=== PATIENT | female | born 1960 | race Caucasian/White ===

== ENCOUNTER 2018-09-29 12:28 | Day surgery (SDC) | payer BC ==
[2018-09-27 09:07] VITALS: BMI 28.3
--- NOTE | 2018-09-29 12:22 | P.GSHP ---
History of Present Illness H&P Date: 09/29/18 CHIEF COMPLAINT: Colon screen HISTORY OF PRESENT ILLNESS: The patient is a 58-year-old female who presents for colon screen. Lower endoscopy was offered for further evaluation and management. PAST MEDICAL HISTORY: Please see list. PAST SURGICAL HISTORY: Please see list. MEDICATIONS: Please see list. ALLERGIES: Please see list. SOCIAL HISTORY: No illicit drug use FAMILY HISTORY: No reports of Crohn disease or ulcerative colitis. REVIEW OF ORGAN SYSTEMS: CONSTITUTIONAL: No reports of fevers or chills. PHYSICAL EXAM: VITAL SIGNS: Stable GENERAL: Well-developed pleasant in no acute distress. HEENT: No scleral icterus. Extraocular movements grossly intact. Moist buccal mucosa. NECK: Supple without lymphadenopathy. CHEST: Unlabored respirations. Equal bilateral excursions. CARDIOVASCULAR: Regular rate and rhythm. Distal 2+ pulses. ABDOMEN: Soft, nontender, nondistended. MUSCULOSKELETAL: No clubbing, cyanosis, or edema. ASSESSMENT: 1. Colon screen. PLAN: 1. Recommend proceeding with a lower endoscopy Past Medical History Past Medical History: Atrial Fibrillation Additional Past Medical History / Comment(s): currentl tx with antibiotic for cold symptoms for few weeks,hx bleeding ulcer History of Any Multi-Drug Resistant Organisms: None Reported Past Surgical History: Section, Joint Replacement, Orthopedic Surgery, Uterine Ablation Additional Past Surgical History / Comment(s): rt knee arthroscopy x2,rt knee partial knee,rt total knee replacement Past Anesthesia/Blood Transfusion Reactions: No Reported Reaction Smoking Status: Never smoker - Past Family History Mother Family Medical History: No Reported History Medications and Allergies Home Medications Medication Instructions Recorded Confirmed Type Amoxicillin 875 mg PO Q12HR 09/27/18 09/27/18 History Aspirin 81 mg PO DAILY 09/27/18 09/27/18 History Benzonatate [Tessalon Perles] 200 mg PO TID PRN 09/27/18 09/27/18 History Metoprolol Tartrate [Lopressor] 25 mg PO BID 09/27/18 09/27/18 History Multivitamins, Thera [Multivitamin 1 tab PO DAILY 09/27/18 09/27/18 History (formulary)] Propafenone HCl [Propafenone HCl 225 mg PO BID PRN 09/27/18 09/27/18 History ER] Allergies Allergy/AdvReac Type Severity Reaction Status Date / Time cephalexin [From Keflex] Allergy Swelling Verified 09/27/18 08:55 Tetracyclines Allergy Unknown Verified 09/27/18 08:55
[2018-09-29] MEDS ORDERED: LIDOCAINE 1% 20 ML VIAL (10MG/ML) FOR IV START INTRADERMA ONE (13:05)
[2018-09-29] MEDS: LACTATED RINGERS 1,000 ML IV SCH ×2 (13:05→23:50)
[2018-09-29] MEDS ORDERED: LABETALOL 5 MG/ML VIAL MDV ONE (13:53)
[2018-09-29] MEDS ORDERED: PROPOFOL 10 MG/ML 20 ML VIAL IV ONE (13:53)
--- NOTE | 2018-09-29 14:11 | P.PCN ---
Date of Procedure: 09/29/18 Description of Procedure: PREOPERATIVE DIAGNOSIS: Colonoscopy screening. POSTOPERATIVE DIAGNOSIS: Colonoscopy screening. Diverticulosis, scattered. OPERATION: Colonoscopy to the ileocecal valve and appendiceal orifice. SURGEON: Suzanne Bruce MD. ANESTHESIA: MAC. INDICATIONS: The patient is a 58-year-old female who presents for colonoscopy screening. Last colonoscopy was 10 years ago. Benefits and risks were described and informed consent was obtained. DESCRIPTION OF PROCEDURE: The patient had undergone Gatorade, MiraLAX and Dulcolax prep. She had been brought into the operating room and laid in the left lateral decubitus position. After adequate intravenous sedation, the rectum was examined with 2% lidocaine jelly. No external hemorrhoids were encountered. The rectal tone was within normal limits. No lesions were palpated in the rectal vault. An Olympus colonoscope was advanced until the ileocecal valve and appendiceal orifice were clearly viewed. The prep was excellent with clear visualization of the mucosal folds. The scope was removed with visualization of each mucosal fold. Scattered diverticulosis was encountered. Mild stricture curvature along the sigmoid colon was encountered upon advancement of scope. No colonic polyps were found. No evidence of focal colitis was found. Retroflexion of the scope demonstrated no internal hemorrhoids. The colon was desufflated. The patient had tolerated the procedure well. Withdrawal time was over 6 minutes. FINDINGS: Sigmoid diverticulosis which stricture between 10-20 cm from the anal verge No internal hemorrhoids No external prolapsed hemorrhoids. No arteriovenous malformations. No adenomatous polyps. No focal colitis. RECOMMENDATIONS: Lower endoscopy in 10 years, 2027 Plan - Discharge Summary New Discharge Prescriptions: No Action Multivitamins, Thera [Multivitamin (formulary)] 1 tab PO DAILY Aspirin 81 mg PO DAILY Propafenone HCl [Propafenone HCl ER] 225 mg PO BID PRN PRN Reason: afib Metoprolol Tartrate [Lopressor] 25 mg PO BID Amoxicillin 875 mg PO Q12HR Benzonatate [Tessalon Perles] 200 mg PO TID PRN PRN Reason: Cough Discharge Medication List Amoxicillin 875 mg PO Q12HR 09/27/18 [History] Aspirin 81 mg PO DAILY 09/27/18 [History] Benzonatate [Tessalon Perles] 200 mg PO TID PRN 09/27/18 [History] Metoprolol Tartrate [Lopressor] 25 mg PO BID 09/27/18 [History] Multivitamins, Thera [Multivitamin (formulary)] 1 tab PO DAILY 09/27/18 [History ] Propafenone HCl [Propafenone HCl ER] 225 mg PO BID PRN 09/27/18 [History] Follow up Appointment(s)/Referral(s): Suzanne Bruce MD [STAFF PHYSICIAN] - As Needed Patient Instructions/Handouts: A-fib (Atrial Fibrillation) (DC), Diverticulosis (ED), Diverticulosis Diet (GEN) Activity/Diet/Wound Care/Special Instructions: Repeat colonoscopy 10 years, 2027. PLEASE SEE YOUR DOCTOR FOR YOUR ATRIAL FIBRILLATION Discharge Disposition: HOME SELF-CARE
[2018-09-29] MEDS ORDERED: PROPAFENONE 225 MG TAB PO STA (15:51)
[2018-09-29] MEDS ORDERED: SODIUM CHLORIDE 0.9% 1,000 ML IV ONE (17:04)
[2018-09-29] MEDS ORDERED: DILTIAZEM DRIP BOLUS FROM BAG 1 MG SOLN IV ONE (17:27)
--- NOTE | 2018-09-29 17:36 | P.CRDCN ---
History of Present Illness Consult date: 09/29/18 History of present illness: This is a 58-year-old female with history of paroxysmal atrial fibrillation, had a screening colonoscopy today. In the recovery room patient was found to be in atrial fibrillation with a rapid ventricular response. Cardiology consult initiated for further evaluation. Patient was being treated with metoprolol and Rythmol on when necessary basis. She takes Rythmol, only when she feels her heart is rapid. She was not considered for anticoagulation therapy because of her low risk profile. Patient doesn't have any hypertension , diabetes, CHF, coronary artery disease or previous stroke. At the time of my examination patient is comfortable and doesn't appear to be in acute distress. Heart rate is in the 120 to 130 range. We'll may give her Rythmol by mouth to see if we can converted to sinus rhythm. No anticoagulation therapy at this time. Patient had colonoscopy today Past Medical History Past Medical History: Atrial Fibrillation Additional Past Medical History / Comment(s): currentl tx with antibiotic for cold symptoms for few weeks,hx bleeding ulcer History of Any Multi-Drug Resistant Organisms: None Reported Past Surgical History: Section, Joint Replacement, Orthopedic Surgery, Uterine Ablation Additional Past Surgical History / Comment(s): rt knee arthroscopy x2,rt knee partial knee,rt total knee replacement Past Anesthesia/Blood Transfusion Reactions: No Reported Reaction Smoking Status: Never smoker - Past Family History Mother Family Medical History: No Reported History Medications and Allergies Home Medications Medication Instructions Recorded Confirmed Type Amoxicillin 875 mg PO Q12HR 09/27/18 09/29/18 History Aspirin 81 mg PO DAILY 09/27/18 09/29/18 History Benzonatate [Tessalon Perles] 200 mg PO TID PRN 09/27/18 09/29/18 History Metoprolol Tartrate [Lopressor] 25 mg PO BID 09/27/18 09/29/18 History Multivitamins, Thera [Multivitamin 1 tab PO DAILY 09/27/18 09/29/18 History (formulary)] Propafenone HCl [Propafenone HCl 225 mg PO BID PRN 09/27/18 09/29/18 History ER] Allergies Allergy/AdvReac Type Severity Reaction Status Date / Time cephalexin [From Keflex] Allergy Swelling Verified 09/27/18 08:55 Tetracyclines Allergy Unknown Verified 09/27/18 08:55 Physical Exam Vitals: Vital Signs Temp Pulse Pulse Pulse Resp BP BP 09/29/18 17:13 124 H 16 121/58 09/29/18 16:44 132 H 16 106/80 09/29/18 16:34 165 H 18 102/67 09/29/18 16:12 128 H 18 85/61 09/29/18 15:53 131 H 18 124/85 09/29/18 15:40 148 H 18 123/80 09/29/18 15:30 117 H 18 117/83 09/29/18 15:20 115 H 18 82/59 09/29/18 15:08 78 18 117/68 09/29/18 14:50 142 H 18 90/68 09/29/18 14:30 120 H 18 09/29/18 14:16 99 16 09/29/18 12:57 97.9 F 54 L 16 165/75 BP Pulse Ox 09/29/18 17:13 98 09/29/18 16:44 98 09/29/18 16:34 99 09/29/18 16:12 99 09/29/18 15:53 100 09/29/18 15:40 100 09/29/18 15:30 100 09/29/18 15:20 100 09/29/18 15:08 100 09/29/18 14:50 09/29/18 14:30 89/67 97 09/29/18 14:16 132/89 96 09/29/18 12:57 97 Intake and Output 09/29/18 09/29/18 09/29/18 06:59 14:59 22:59 Intake Total 500 50 Balance 500 50 Intake: IV 500 50 GENERAL EXAM: Patient is alert and oriented and doesn't appear to be in any acute distress HEENT: Normocephalic. Normal reaction of pupils, equal size, normal range of extraocular motion. No erythema or exudates in the throat. NECK: No masses, no nuchal rigidity. CHEST: No chest wall deformity. LUNGS: Equal air entry with no crackles or wheeze. HEART: S1 and S2 normal, tachycardic ABDOMEN: No hepatosplenomegaly, normal bowel sounds, no guarding or rigidity. SKIN: No rashes CENTRAL NERVOUS SYSTEM: No focal deficits. EXTREMITIES: No cyanosis, clubbing or edema. Results Current Medications Generic Name Dose Route Start Last Admin Trade Name Freq PRN Reason Stop Dose Admin Lactated Ringer's 1,000 mls @ 20 mls/hr 09/28/18 18:45 09/29/18 13:05 Lactated Ringers IV 900 mls .Q24H ALISON Administration Sodium Chloride 1,000 mls @ 999 mls/hr 09/29/18 17:04 09/29/18 17:12 Saline 0.9% IV 09/29/18 18:04 0 mls .Q1H1M ONE Administration Diltiazem HCl 50 mg/ Sodium 50 mls @ 10 mls/hr 09/29/18 17:30 Chloride IV .Q5H ALISON 10 MG/HR Intake and Output 09/29/18 09/29/18 09/29/18 06:59 14:59 22:59 Intake Total 500 50 Balance 500 50 Intake: IV 500 50 EKG Interpretations (text) Atrial fibrillation with a rapid ventricular response Assessment and Plan (1) Paroxysmal atrial fibrillation Current Visit: Yes Status: Acute Code(s): I48.0 - PAROXYSMAL ATRIAL FIBRILLATION SNOMED Code(s): 021674817 Plan: I will initiate on Cardizem IV drip. We'll resume beta blockers and Rythmol. Hold off on anticoagulations until tomorrow.
[2018-09-29] MEDS: DILTIAZEM 50 MG in SODIUM CHLORIDE 0.9% 40 ML IV SCH ×2 (17:46→21:16)
[2018-09-29] MEDS ORDERED: ALPRAZolam 0.25 MG TAB PO PRN (18:59)
[2018-09-29] MEDS ORDERED: TEMAZEPAM 15 MG CAP PO PRN (18:59)
[2018-09-29] MEDS ORDERED: ACETAMINOPHEN TAB 500 MG TAB PO PRN (18:59)
[2018-09-29] MEDS ORDERED: HYDROcodone/APAP 5-325MG 1 EACH TAB PO PRN (18:59)
--- NOTE | 2018-09-29 19:39 | P.PN ---
Progress Note - Text Progress Note Date: 09/29/18 She reports feeling well after developing afib with RVR in the PACU following her uneventful colonoscopy. No polyps or biopsies performed. Findings of diverticulosis confirmed. "I do no feel my afib!" She has been seen by cardiology. Discharge pending cardiology recommendations. Follow-up with primary care doctor and line builder as outpatient.
[2018-09-29] MEDS: AMOXICILLIN 875 MG TAB PO SCH (20:49)
[2018-09-29] MEDS: METOPROLOL TARTRATE 25 MG TAB PO SCH (20:49)
[2018-09-29 21:05] LABS: Albumin 3.5 g/dL (3.5-5.0); Calcium 8.9 mg/dL (8.4-10.2); Potassium 4.6 mmol/L (3.5-5.1); Total Bilirubin 0.5 mg/dL (0.2-1.3); Total Protein 6.3 g/dL (6.3-8.2)
[2018-09-29] MEDS: PROPAFENONE 150 MG TAB PO SCH (21:15)
[2018-09-29 21:22] LABS: Basophils % (A) 1 %; Eosinophils # (A) 0.3 k/uL (0-0.7); Eosinophils % (A) 4 %; HCT 43.8 % (34.0-46.0); HGB 13.8 gm/dL (11.4-16.0); Lymphocytes # (A) 2.1 k/uL (1.0-4.8); Lymphocytes % (A) 31 %; MCH 28.8 pg (25.0-35.0); MCHC 31.6 g/dL (31.0-37.0); MCV 91.2 fL (80.0-100.0); Mean Platelet Volume 7.5; Monocytes # (A) 0.5 k/uL (0-1.0); Monocytes % (A) 7 %; Neutrophils # (A) 3.7 k/uL (1.3-7.7); Neutrophils % (A) 54 %; Platelet Count 256 k/uL (150-450); RBC 4.81 m/uL (3.80-5.40); RDW 13.6 % (11.5-15.5); WBC 6.8 k/uL (3.8-10.6)
--- NOTE | 2018-09-29 21:59 | HP ---
HISTORY AND PHYSICAL CHIEF COMPLAINT: Atrial fibrillation. HISTORY OF PRESENT ILLNESS: This 58-year-old woman with a past medical history of DJD, history of paroxysmal atrial fibrillation, being followed by Dr. Field in the outpatient setting, has had a colonoscopy today by Dr. Bruce for colonoscopy screening. The colonoscopy did not show any acute abnormality, but in Recovery the patient had atrial fibrillation with fast ventricular rate and some minimal hypotension. The heart rate was up to 170. Blood pressure was in the high 80s. The patient received a bolus of 1 L fluid and the patient was transferred to telemetry and is being closely monitored. Cardiology has also seen the patient. She has been started on Cardizem drip. There is no history of any fever, rigor or chills. No history of headache, loss of consciousness, seizures. No chest pain, palpitation. PAST MEDICAL HISTORY: 1. Paroxysmal atrial fibrillation. 2. DJD. 3. History of . MEDICATIONS: Medications prior to admission include: 1. Propranolol 225 mg p.o. b.i.d. p.r.n. 2. Multivitamins 1 p.o. daily. 3. Tessalon Perles 200 mg t.i.d. p.r.n. 4. Aspirin 81 mg daily. 5. Amoxicillin 875 mg p.o. b.i.d. 6. Lopressor 25 mg b.i.d. ALLERGIES: KEFLEX and TETRACYCLINE. FAMILY HISTORY: No history of heart disease or strokes in family. SOCIAL HISTORY: No history of smoking. No history of alcohol intake. REVIEW OF SYSTEMS: ENT: No diminished hearing. No diminished vision. CARDIOVASCULAR SYSTEM: As mentioned earlier. RESPIRATORY SYSTEM: As mentioned earlier. GI: No nausea, vomiting. : No dysuria or retention. NERVOUS SYSTEM: No numbness, weakness. ALLERGY/IMMUNOLOGY: No asthma, hayfever. MUSCULOSKELETAL: As mentioned earlier. HEMATOLOGY/ONCOLOGY: No history of anemia. ENDOCRINE: No history of diabetes, hypothyroidism. CONSTITUTIONAL: As mentioned earlier. DERMATOLOGY: Negative. RHEUMATOLOGY: Negative. PSYCHIATRY: As mentioned earlier. PHYSICAL EXAMINATION: Patient alert and oriented x3. Pulse is 84, irregular. Blood pressure 110/75, respirations 16, temperature 97.9, pulse ox 99% on room air. HEENT: Conjunctivae normal. Oral mucosa moist. NECK: No jugular venous distention. No carotid bruit. No lymph node enlargement. CARDIOVASCULAR SYSTEM: S1, S2 irregular. S4 present. No S3. RESPIRATORY SYSTEM: Breath sounds diminished at the bases. No rhonchi. No crackles. ABDOMEN: Soft, non-tender. No mass palpable. LEGS: No edema. No swelling. NERVOUS SYSTEM: Higher functions as mentioned earlier. Moves all 4 limbs. No focal motor or sensory deficit. LYMPHATICS: No lymph node palpable in neck, axillae or groin. SKIN: No ulcer, rash, bleeding. LABS: Not available currently. ASSESSMENT: 1. Atrial fibrillation with a fast ventricular rate. 2. History of paroxysmal atrial fibrillation. 3. Status post colonoscopy. 4. History of bleeding ulcer. 5. History of degenerative joint disease. RECOMMENDATIONS AND DISCUSSION: In this 58-year-old woman who presented with atrial ablation, at this time I recommend to continue the Cardizem, resume the home medications. Recommend a cardiology consultation. Symptomatic treatment. The patient is followed by a food expeditor in [facility] with Jesus Cardenas, according to her. Further recommendations to follow. Prognosis guarded. Discussed with the patient, who understands and agrees. A copy of this dictation is being forwarded to Dr. Field, who is the primary physician. MMODL / IJN: [id number] /
[2018-09-29] MEDS ORDERED: BENZONATATE 100 MG CAP PO PRN (22:00)
[2018-09-30 02:02] LABS: Appearance,Urine Clear (Clear); Bacteria,Urine Rare /hpf; Bilirubin,Urine Negative (Negative); Blood,Urine Negative (Negative); Color,Urine Yellow; Glucose,Urine (UA) Negative (Negative); Ketones,Urine Negative (Negative); Leukocyte Esterase,Urine Moderate (Negative); Nitrite,Urine Negative (Negative); Protein,Urine Negative (Negative); RBC,Urine <1 /hpf (0-5); Specific Gravity,Urine 1.013 (1.001-1.035); Squamous Epithelial Cell,Urine 1 /hpf (0-4); Urobilinogen,Urine <2.0 mg/dL (<2.0); WBC,Urine 4 /hpf (0-5)
[2018-09-30] MEDS: DILTIAZEM 50 MG in SODIUM CHLORIDE 0.9% 40 ML IV SCH (05:42)
[2018-09-30] MEDS ORDERED: PANTOPRAZOLE 40 MG TABLET PO SCH (07:30)
[2018-09-30 08:10] LABS: Basophils % (A) 0 %; Eosinophils # (A) 0.3 k/uL (0-0.7); Eosinophils % (A) 5 %; HCT 40.7 % (34.0-46.0); HGB 13.1 gm/dL (11.4-16.0); Lymphocytes % (A) 30 %; MCH 29.2 pg (25.0-35.0); MCHC 32.2 g/dL (31.0-37.0); MCV 90.8 fL (80.0-100.0); Mean Platelet Volume 7.7; Monocytes # (A) 0.4 k/uL (0-1.0); Monocytes % (A) 6 %; Neutrophils # (A) 3.7 k/uL (1.3-7.7); Neutrophils % (A) 56 %; Platelet Count 213 k/uL (150-450); RBC 4.49 m/uL (3.80-5.40); RDW 13.5 % (11.5-15.5); WBC 6.6 k/uL (3.8-10.6)
[2018-09-30 08:32] VITALS: RESP 18; TEMP 98.1
[2018-09-30 08:32] LABS: Anion Gap 8 mmol/L; Blood Urea Nitrogen 16 mg/dL (7-17); Calcium 8.7 mg/dL (8.4-10.2); Carbon Dioxide 23 mmol/L (22-30); Chloride 109 mmol/L (98-107); Glucose 90 mg/dL (74-99); Potassium 4.4 mmol/L (3.5-5.1); Sodium 140 mmol/L (137-145)
[2018-09-30] MEDS: METOPROLOL TARTRATE 25 MG TAB PO SCH (08:32)
[2018-09-30] MEDS: PROPAFENONE 150 MG TAB PO SCH (08:33)
[2018-09-30] MEDS: AMOXICILLIN 875 MG TAB PO SCH (08:33)
--- NOTE | 2018-09-30 08:37 | P.PN ---
Subjective Progress Note Date: 09/30/18 Principal diagnosis: A. fib Patient doing well today. Denies pain. She apparently is scheduled for an echo this morning. She has not seen cardiology she states. Objective - Vital Signs Vital signs: Vital Signs Temp 98.1 F 09/30/18 08:26 Pulse 87 09/30/18 08:26 Resp 18 09/30/18 08:26 BP 111/89 09/30/18 08:26 Pulse Ox 98 09/30/18 08:26 Intake & Output 09/29/18 09/30/18 09/30/18 18:59 06:59 18:59 Intake Total 900 50 Output Total 600 Balance 900 -550 Intake: IV 900 Intake, IV Titration 50 Amount Diltiazem 50 mg In Sodium 50 Chloride 0.9% 40 ml @ 10 MG/HR 10 mls/hr IV .Q5H ALISON Rx#:[id number] Output: Urine 600 Other: Voiding Method Toilet # Voids 4 - Exam Abdomen: Soft, nontender, nondistended - Labs CBC & Chem 7: 09/30/18 07:24 09/30/18 07:24 Labs: Abnormal Lab Results - Last 24 Hours (Table) 09/29/18 09/30/18 09/30/18 Range/Units 20:24 01:23 07:24 Chloride 109 H 109 H (98-107) mmol/L Glucose 113 H (74-99) mg/dL Ur Leukocyte Esterase Moderate H (Negative) Urine Bacteria Rare H (None) /hpf Assessment and Plan Plan: Patient with A. fib/RVR after colonoscopy. Await cardiology evaluation. Possible discharge today if cleared by them.
[2018-09-30] MEDS ORDERED: ASPIRIN 81 MG PO SCH (09:00)
[2018-09-30] MEDS ORDERED: MULTIVITAMINS, THERA 1 EACH TAB PO SCH (12:00)
[2018-09-30 13:32] VITALS: BP 97/54; PULSE 74
--- NOTE | 2018-09-30 14:52 | ECHOF ---
Referral Reason:Chest pain and cardiomyopathy MEASUREMENTS -------- HEIGHT: 165.1 cm WEIGHT: 77.1 kg BP: 92/59 IVSd: 1.0 cm (0.6 - 1.1) LVIDd: 3.8 cm (3.9 - 5.3) LVPWd: 1.1 cm (0.6 - 1.1) EDV(Teich): 61 ml IVSs: 1.4 cm LVIDs: 2.6 cm LVPWs: 1.4 cm %IVS Thck: 32 % ESV(Teich): 26 ml EF(Teich): 58 % %FS: 30 % SV(Teich): 35 ml LA Diam: 3.2 cm (2.7 - 3.8) RVIDd: 2.5 cm (< 3.3) IVC: 21.29 mm LALs A4C: 5.6 cm LAAs A4C: 17.5 cm LAESV A-L A4C: 47 ml LAESV MOD A4C: 44 ml LALs A2C: 5.7 cm LAAs A2C: 20.6 cm LAESV A-L A2C: 63 ml LAESV MOD A2C: 61 ml LAESV(A-L): 55 ml LAESV Index (A-L): 29.66 ml/m Ao Diam: 2.6 cm (2.0 - 3.7) AV Cusp: 2.2 cm (1.5 - 2.6) EPSS: 1.2 cm MV DecT: 153 ms MV PHT: 60 ms MVA By PHT: 3.6 cm AV Vmax: 1.67 m/s AV maxP.18 mmHg TR Vmax: 2.26 m/s TR maxP.41 mmHg RAP: 5.00 mmHg RVSP: 25.41 mmHg MV EF SLOPE: 123.42 mm/s (70 - 150) MV EXCURSION: 15.49 mm (> 18.000) FINDINGS -------- Sinus rhythm. This was a technically good study. The left ventricular size is normal. There is borderline concentric left ventricular hypertrophy. Overall left ventricular systolic function is normal with, an EF between 55 - 60 %. The right ventricle is normal in size. LA is midly dilated 29-33ml/m2. The right atrium is normal in size. There is mild aortic valve sclerosis. There is trace to mild mitral regurgitation. Mild tricuspid regurgitation present. Right ventricular systolic pressure is normal at < 35 mmHg. Trace/mild (physiologic) pulmonic regurgitation. The aortic root size is normal. Normal inferior vena cava with normal inspiratory collapse consistent with estimated right atrial pre ssure of 5 mmHg. The inferior vena cava is mildly dilated. There is no pericardial effusion. CONCLUSIONS -------- 1. Sinus rhythm. 2. This was a technically good study. 3. The left ventricular size is normal. 4. There is borderline concentric left ventricular hypertrophy. 5. Overall left ventricular systolic function is normal with, an EF between 55 - 60 %. 6. The right ventricle is normal in size. 7. LA is midly dilated 29-33ml/m2. 8. The right atrium is normal in size. 9. There is mild aortic valve sclerosis. 10. There is trace to mild mitral regurgitation. 11. Mild tricuspid regurgitation present. 12. Right ventricular systolic pressure is normal at < 35 mmHg. 13. Trace/mild (physiologic) pulmonic regurgitation. 14. The aortic root size is normal. 15. Normal inferior vena cava with normal inspiratory collapse consistent with estimated right atrial pressure of 5 mmHg. 16. The inferior vena cava is mildly dilated. 17. There is no pericardial effusion. [employer]: Brittany Lebron RDCS
--- NOTE | 2018-10-01 05:26 | PN ---
PROGRESS NOTE This patient underwent colonoscopy and subsequently had atrial fibrillation. The patient has a known history of paroxysmal atrial fibrillation. The heart rate is under control. She is otherwise doing well. No respiratory distress is noted. Patient's medications are reviewed and the patient will be discharged home on the current medications. The patient is advised to follow with the MD. AKOSUA / NIGEL: [id number] /
== END 2018-09-30 14:41 | disposition home or self-care (01) ==
LOC: ORWHC2ENDO 12:28 → 3SCARD 17:31 → ORWHC2ENDO 09-30 14:41
PROVIDERS: ATTEND Surgery Plastic and Reconstructive Surgery
DX: Z12.11 Encounter for screening for malignant neoplasm of colon (principal); K57.30 Diverticulosis of large intestine without perforation or abscess without bleeding; K56.699 Other intestinal obstruction unspecified as to partial versus complete obstruction; I48.0 Paroxysmal atrial fibrillation; I10 Essential (primary) hypertension; I37.1 Nonrheumatic pulmonary valve insufficiency; M19.90 Unspecified osteoarthritis, unspecified site; Z87.19 Personal history of other diseases of the digestive system; Z79.82 Long term (current) use of aspirin; Z79.899 Other long term (current) drug therapy; Z88.1 Allergy status to other antibiotic agents
CPT/HCPCS: 93306; 93005; 80053; 80048; 84443; 85025 ×2; 81001; J2704; G0121